=== PATIENT | female | born 1995 | race Two or more races ===

== ENCOUNTER 2017-04-12 00:59 | Inpatient (IN) ==
[2017-04-12] MEDS ORDERED: BUTORPHANOL 1 MG/ML VIAL IV PRN (01:12)
[2017-04-12] MEDS ORDERED: ONDANSETRON 4 MG/2 ML VIAL IV PRN (01:12)
[2017-04-12] MEDS ORDERED: OXYTOCIN/LR 20 UNIT/1,000 ML BAG IV ONE ×3 (01:28→05:26)
[2017-04-12] MEDS ORDERED: LACTATED RINGERS 1,000 ML IV SCH (01:30)
--- NOTE | 2017-04-12 01:54 | OB/GYN History & Physical ---
History of Present Illness History of present illness: Ms. Isaias Juan is a 22 year old female [employer] W[employer] ID# [id number] Pt. 22y/o @ 36wks LMP 08/04/16 DONYA 05/10/17 presents to labor and delivery with contractions and leakage of fluid since midnight when traveling on a bus. Pt. states she was [place] off [place] the police station and then transferred to the hospital. Pt states her care in [place] and complicated by hospitalization in January for fever of unknown origin. Per pt otherwise her care was uncomplicated. 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 Admit to labor and delivery 2. labs 3. ivfs 4. anesthesia consult 5. continous external monitoring Current Visit: Yes
--- NOTE | 2017-04-12 02:08 | Operative Note ---
Date of procedure: 04/12/17 Pre-op diagnosis: 22y/o @ 36 wks in active labor Post-op diagnosis: same Procedure: Pt. s/p precipitous spontaneous vaginal delivery. When I arrived the infant had just delivered with nurse Crystal Hylton and Amber Atkinson in attendance. Per staff present, delivery uncomplicated and nursery present. Female delivered at 121am with 8/9 apgars. weight 3dy35eg. Placenta delivered intact, 3 vessel cord. Small laceration involving the left labia minora repaired with 3 chromic in a figure of 8 stitch. Excellent hemostasis. EBL 300cc Anesthesia: local Surgeon / Physician: Rona Sherwood Estimated blood loss: other (300cc) Specimens: other (placenta, cord, membranes) Condition: stable Disposition: floor
[2017-04-12 02:39] LABS: Basophils % 0.2 % (0.0-0.8); Hematocrit 35.9 VOL% (35.7-47.0); Hemoglobin 12.2 GM/DL (12.0-16.0); Immature Granulocytes % 0.7 %; Immature Granulocytes Absolute 0.09 #; Lymphocytes % 7.8 % (21.3-54.2); Mean Corpuscular Hemoglobin 30 PG (27-34); Mean Corpuscular Volume 88.4 FL (87-102); Mean Platelet Volume 10.4 FL (9.6-12.0); Monocytes # 0.5 10*3/uL (0.11-0.8); Monocytes % 3.5 % (1.7-12.7); Neutrophils # 11.2 10*3/uL (1.4-7.4); Neutrophils % 87.8 % (38.7-73.9); Platelet Count 262 T/CUMM (130-400); Red Blood Count 4.06 MC/CUMM (3.8-5.5); Red Cell Distribution Width 14.6 % (9.3-17.3); White Blood Count 12.7 T/CUMM (4-12)
[2017-04-12 02:41] LABS: Albumin 2.8 G/DL (3.4-5.0); Bilirubin,Total 1.9 MG/DL (0.2-1.0); Osmolality,Calculated 269.8 MOS/KG (273-304); Potassium 3.8 MMOL/L (3.5-5.1); Total Protein 7.2 G/DL (6.4-8.3)
[2017-04-12] MEDS ORDERED: BENZOCAINE 20%/MENTHOL 0.5% SPRAY 56 GM CAN TOP PRN (04:05)
[2017-04-12] MEDS ORDERED: ACETAMINOPHEN/CODEINE 300-30 MG TABLET PO PRN ×2 (04:06)
[2017-04-12 04:55] LABS: Band Neutrophils 3 % (0-10); Lymphocytes 9 % (20-55); Platelet Estimate Normal; Segmented Neutrophils 84 % (50-85); Total Cells Counted 100
[2017-04-12 05:26] LABS: Rubella Antibody IgG 11.8 IU/ML
[2017-04-12 05:54] LABS: HIV Antigen/Antibody Result Nonreactive (Nonreactive); Hepatitis B Surface Ab Result Negative
[2017-04-12] MEDS: MULTIVITAMIN (PRENATAL) TABLET PO SCH (08:42)
[2017-04-12] MEDS: DOCUSATE SODIUM 100 MG CAPSULE PO PRN (08:42)
[2017-04-12] MEDS: IBUPROFEN 800 MG TABLET PO PRN (08:42)
--- NOTE | 2017-04-12 11:42 | OB/GYN Progress Note ---
Assessment and Plan (1) Active labor Status: Acute Assessment and plan: 1. Admit to labor and delivery 2. labs 3. ivfs 4. anesthesia consult 5. continous external monitoring Current Visit: Yes (2) Normal spontaneous vaginal delivery Status: Acute Assessment and plan: 1. clinical social worker consult 2. plan for discharge in am pending vitals are stable Current Visit: Yes E[facility]URNER - PN: Subj Interval history: [email or web address] PIER HAND ID # [id number] Pt. seen by bedside, denies any complaints other than normal lochia. Pt. denies headaches or blurred vision. no chest pain or shortness of breath. Pt. mood is good and states that her family is coming tomorrow to get her. Exam E[facility]URNER - Constitutional Vitals: Vital Signs Temp Pulse Resp BP Pulse Ox 04/12/17 10:00 20 04/12/17 07:41 97.4 F L 52 L 16 115/64 100 04/12/17 05:40 97.0 F L 60 16 123/66 100 04/12/17 04:40 97.6 F 62 16 118/59 100 04/12/17 03:40 97.6 F 57 L 18 115/67 98 04/12/17 03:10 97.1 F L 58 L 20 117/71 100 04/12/17 02:40 97.1 F L 63 20 123/72 100 General appearance: no acute distress - Respiratory Respiratory exam: Present: clear to auscultation bilaterally - Cardiovascular Cardiovascular exam: Present: regular rate and rhythm - Extremities Exam Extremities exam: Present: normal inspection Results - Labs CBC & BMP: 04/12/17 01:59 04/12/17 01:59 Lab Results: I have reviewed the past 24 hour labs
--- NOTE | 2017-04-12 11:46 | Discharge Summary ---
Hospital Course - Hospital Course Hospital Course: Pt. admitted and underwent a normal spontaneous vaginal delivery of a female Diagnosis - Discharge Diagnosis (1) Active labor Status: Acute (2) Normal spontaneous vaginal delivery Status: Acute Discharge Plan - Discharge Data Disposition: Disch To Home/Self Care Condition at Discharge: Stable Activity: resume usual activities as tolerated Hygiene: may shower Weight Bearing at Discharge: partial weight bearing Driving: no restrictions Contact your physician if you experience:: fever over 101, Difficulty voiding, Redness or swelling, Nausea/Vomiting, Shortness of breath, Bleeding, pain uncontrolled by pain medications - Follow Up or Referral - Forms/Instructions Additional Discharge Instructions: f/u with an obgyn in 2wks following discharge Exam - Constitutional Vitals: Period Temp Pulse Resp BP Sys/Cook Pulse Ox Last 24 Hr 97.0 F-97.6 F 52-63 16-20 115-123/59-72 98-100 General appearance: no acute distress - Respiratory Respiratory exam: Present: clear to auscultation bilaterally - Cardiovascular Cardiovascular exam: Present: regular rate and rhythm - GI/Abdominal GI/Abdominal exam: Present: normal bowel sounds - Extremities Exam Extremities exam: Present: normal inspection Discharge Results Labs on day of discharge: Labs from last 24 hours 04/12/17 04/12/17 04/12/17 01:59 01:59 01:59 WBC RBC Hgb Hct MCV MCH MCHC RDW Plt Count MPV Neut % (Auto) Lymph % (Auto) Bath % (Auto) Eos % (Auto) Baso % (Auto) Neut # (Auto) Lymph # (Auto) Bath # (Auto) Eos # (Auto) Baso # (Auto) Total Counted Immature Gran % Nucleated RBC % Immature Gran # Segmented Neutrophils Band Neutrophils Lymphocytes Monocytes Nucleated RBCs # Platelet Estimate Pappenheimer Bodies Sodium 137 Potassium 3.8 Chloride 104 Carbon Dioxide 13 L Anion Gap 23.8 H BUN 8 Creatinine 0.90 GFR Calculation 71 BUN/Creatinine Ratio 8.00 Glucose 87 Calculated Osmolality 269.8 L Calcium 9.0 Total Bilirubin 1.90 H AST 29 ALT 21 Alkaline Phosphatase 262 H Total Protein 7.2 Albumin 2.8 L Globulin 4.4 H Albumin/Globulin Ratio 0.6 L Treponema pallidum IgG Nonreactive Hep Bs Antibody Negative HIV 1&2 Antigen & Ab Nonreactive Rubella IgG Antibody 11.8 Blood Type Antibody Screen 04/12/17 04/12/17 01:59 01:59 WBC 12.7 H RBC 4.06 Hgb 12.2 Hct 35.9 MCV 88.4 MCH 30 MCHC 34.0 RDW 14.6 Plt Count 262 MPV 10.4 Neut % (Auto) 87.8 H Lymph % (Auto) 7.8 L Bath % (Auto) 3.5 Eos % (Auto) 0.0 Baso % (Auto) 0.2 Neut # (Auto) 11.2 H Lymph # (Auto) 1.0 L Bath # (Auto) 0.5 Eos # (Auto) 0.0 Baso # (Auto) 0.0 Total Counted 100 Immature Gran % 0.7 Nucleated RBC % 0.0 Immature Gran # 0.09 Segmented Neutrophils 84 Band Neutrophils 3 Lymphocytes 9 L Monocytes 4 Nucleated RBCs # 0.00 Platelet Estimate Normal Pappenheimer Bodies Threading 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 No PCP Attending physician on admission: Rona Sherwood, Consults: 04/12/17 01:12 Consult to Anesthesiology [CONS] Routine Consulting Provider: Reason for Anesthesiology: Epidural Consult Comment: Epidural for pain managment 04/12/17 03:06 Consult to Case Mgmt/Social Srvs [CONS] Routine Reason for Case Mgmt/Social Srvs: Other Consult Comment: pt arrived via ambulance non [facility] speaking from out of town. no family. Discharging clinician: Rona Sherwood
[2017-04-13] MEDS: DOCUSATE SODIUM 100 MG CAPSULE PO PRN ×2 (10:38→21:12)
[2017-04-13] MEDS: MULTIVITAMIN (PRENATAL) TABLET PO SCH (10:39)
--- NOTE | 2017-04-13 11:23 | Pathology Report from [facility] ---
[facility] ACCESSION # : [id number] PATIENT NAME : Samantha Hernandez ORDERING DR : Cuca Templeton MD CLINICAL HX: IUP @ 36 wks (per Pt) SROM, cervix 9/100/0, active labor POST-OP DX: Same SPECIMEN INFO: Placenta GROSS DESCRIPTION: Received fresh labeled SAMANTHA MARTINEZ is a 410 gm placenta measuring 18.0 x 15.0 x 2.3 cm. The membranes are pink [place] and somewhat translucent. The umbilical cord measures 20.0 cm, contain three vessels and is eccentrically inserted. The surface is blue king and partially circumarginate. The maternal surface displays mildly disrupted red king cotyledons with no abnormalities grossly seen upon sectioning. Sections submitted A- membranes and cord, B- and maternal surfaces. DIAGNOSIS FOR SAMANTHA MARTINEZ: PLACENTA: Trivascular umbilical cord. Unremarkable membranes. Third trimester placenta with dystrophic calcification. COLLECTED DATE: 04/12/2017 [facility] REPORT DATE: 04/13/2017 ELECTRONICALLY SIGNED BY: Lian Stewart III, M.D. 04/13/2017 - 9:50:20 [facility]
[2017-04-13] MEDS: IBUPROFEN 800 MG TABLET PO PRN (21:00)
[2017-04-13 21:11] VITALS: BP 115/57
== END 2017-04-13 22:00 | disposition home or self-care (01) | DRG 775 ==
LOC: N.LDOUT 00:59 → N.LD 01:03 → N.OB 03:12
PROVIDERS: ADMIT Obstetrics & Gynecology; ATTEND Obstetrics & Gynecology